=== PATIENT | female | born 1970 | race Caucasian/White ===

== ENCOUNTER 2016-11-05 17:54 | Inpatient (IN) | payer MEDICAID ==
[~2016-11-05] VITALS: Ht 157.5 cm; Wt 74.8 kg
[2016-11-05] MEDS ORDERED: MORPHINE SULFATE 4 MG/ML CPJ (NOT FOR IM USE) IV STA (19:32)
[2016-11-05] MEDS ORDERED: SODIUM CHLORIDE 0.9% 1,000 ML IV ONE (19:32)
[2016-11-05] MEDS ORDERED: ONDANSETRON HCL 4MG/2ML VIAL IV STA (19:32)
[2016-11-05] MEDS ORDERED: FAMOTIDINE 20MG/2ML VIAL IV STA (19:32)
[2016-11-05 19:57] LABS: HEMATOCRIT. 36.1 % (36.0-48.0); MEAN CORPUSCULAR HEMOGLOBIN 26.1 pg (28.0-32.0); MEAN CORPUSCULAR VOLUME 78.6 fL (81.0-99.0); MEAN PLATELET VOLUME 7.6 fl (7.4-10.4); PLATELET 389 x1000/uL (130-400); RED CELL DISTRIBUTION WIDTH 18.4 % (11.6-14.6)
[2016-11-05 20:00] LABS: INR 1.1; PROTHROMBIN TIME 11.3 sec (9.4-11.6)
[2016-11-05 20:02] LABS: CARBON DIOXIDE 25 mEq/L (21-32); CHLORIDE 107 mEq/L (98-107)
[2016-11-05 20:10] LABS: HCG SCREEN NEGATIVE
[2016-11-05 20:40] LABS: PLATELET ESTIMATE NORMAL
[2016-11-05] MEDS ORDERED: KETOROLAC 30MG/ML VIAL IV ONE (21:45)
[2016-11-05] MEDS ORDERED: MAGNESIUM/ALUMINUM HYDROXIDE/SIMETHICONE 30ML UDC PO STA (21:46)
[2016-11-05] MEDS ORDERED: VISCOUS LIDOCAINE 2% 15 ML UDC PO STA (21:46)
[2016-11-05 22:13] LABS: CLARITY URINE CLEAR (CLEAR); COLOR URINE YELLOW (YELLOW); SPECIFIC GRAVITY URINE 1.023 (1.005-1.030)
[2016-11-05 22:14] LABS: GLUCOSE URINE NEGATIVE (NEGATIVE); KETONES URINE 2+ (NEGATIVE); LEUKOCYTE ESTERASE URINE NEGATIVE (NEGATIVE); NITRITE URINE NEGATIVE (NEGATIVE); OCCULT BLOOD URINE NEGATIVE (NEGATIVE); PH URINE 6.5 (4.5-8.0); PROTEIN URINE TRACE (NEGATIVE); UROBILINOGEN URINE 0.2 E.U./dL (0.2-1.0)
[2016-11-06] MEDS ORDERED: CLONIDINE 0.1MG TABLET PO PRN (00:15)
[2016-11-06] MEDS: DEXT 5%/0.45% NACL 1000ML 1,000 ML IV SCH ×2 (01:07→13:35)
[2016-11-06] MEDS: ACETAMINOPHEN 325MG TABLET PO PRN ×2 (01:31→19:01)
[2016-11-06] MEDS ORDERED: CLAR500T PO (17:25)
[2016-11-06] MEDS ORDERED: OMEP20CA10 PO (17:27)
[2016-11-06 17:30] VITALS: BP 102/66
[2016-11-06 17:40] VITALS: BP 102/66
[2016-11-06] MEDS ORDERED: METR500T4 PO (18:25)
[2016-11-06] MEDS: ONDANSETRON HCL 4MG/2ML VIAL IV PRN (19:01)
[2016-11-06 20:00] VITALS: BP 104/69
[2016-11-07] VITALS: BP 100/54
[2016-11-07 04:00] VITALS: BP 101/63
[2016-11-07] MEDS: DEXT 5%/0.45% NACL 1000ML 1,000 ML IV SCH (06:20)
[2016-11-07 06:43] LABS: BASOPHILS % 0.6 % (0.0-2.0); HEMATOCRIT. 33.6 % (36.0-48.0); HEMOGLOBIN. 10.9 g/dL (12.0-16.0); LYMPHOCYTES % 43.8 % (20.0-50.0); MEAN CORPUSCULAR HEMOGLOBIN 25.7 pg (28.0-32.0); MEAN CORPUSCULAR VOLUME 79.2 fL (81.0-99.0); MEAN PLATELET VOLUME 8.3 fl (7.4-10.4); MONOCYTES % 8.4 % (2.0-8.0); NEUTROPHILS % 45.2 % (40.0-76.0); PLATELET 324 x1000/uL (130-400); RED BLOOD CELL COUNT 4.24 mill/uL (4.2-5.4); RED CELL DISTRIBUTION WIDTH 17.9 % (11.6-14.6)
[2016-11-07 08:00] VITALS: BP 100/56
[2016-11-07 08:00] LABS: CARBON DIOXIDE 26 mEq/L (21-32); CHLORIDE 108 mEq/L (98-107)
[2016-11-07] MEDS: ONDANSETRON HCL 4MG/2ML VIAL IV PRN ×3 (09:24→19:14)
[2016-11-07] MEDS: MORPHINE SULFATE 2 MG/ML CPJ (NOT FOR IM USE) IV PRN ×3 (09:27→19:18)
[2016-11-07] MEDS: ACETAMINOPHEN 325MG TABLET PO PRN (10:20)
[2016-11-07 12:00] VITALS: BP 106/62
[2016-11-07 16:00] VITALS: BP 99/60
[2016-11-07 20:00] VITALS: BP 96/65
[2016-11-08] VITALS (7 sets, daily range): BP systolic 96–129; BP diastolic 56–69
[2016-11-08] MEDS: DEXT 5%/0.45% NACL 1000ML 1,000 ML IV SCH ×2 (06:20→18:03)
[2016-11-08] MEDS: ACETAMINOPHEN 325MG TABLET PO PRN (09:58)
[2016-11-08] MEDS: ONDANSETRON HCL 4MG/2ML VIAL IV PRN ×2 (11:34→23:11)
[2016-11-08] MEDS: FAMOTIDINE 20MG TABLET PO SCH (22:24)
[2016-11-08] MEDS: MORPHINE SULFATE 2 MG/ML CPJ (NOT FOR IM USE) IV PRN (23:03)
[2016-11-09 04:00] VITALS: BP 107/61
[2016-11-09 08:00] VITALS: BP 113/68
[2016-11-09] MEDS: FAMOTIDINE 20MG TABLET PO SCH ×2 (08:30→21:14)
[2016-11-09] MEDS ORDERED: LOPERAMIDE 2 MG/10 ML UDC PO NR (10:00)
[2016-11-09] MEDS: MORPHINE SULFATE 2 MG/ML CPJ (NOT FOR IM USE) IV PRN ×2 (10:14→20:19)
[2016-11-09] MEDS: ONDANSETRON HCL 4MG/2ML VIAL IV PRN (10:20)
[2016-11-09 10:52] LABS: BASOPHILS % 0.6 % (0.0-2.0); EOSINOPHILS % 1.4 % (0.0-5.0); HEMOGLOBIN. 11.7 g/dL (12.0-16.0); LYMPHOCYTES % 29.5 % (20.0-50.0); MEAN CORPUSCULAR HEMOGLOBIN 25.5 pg (28.0-32.0); MEAN CORPUSCULAR VOLUME 78.5 fL (81.0-99.0); MONOCYTES % 7.4 % (2.0-8.0); NEUTROPHILS % 61.1 % (40.0-76.0); PLATELET 354 x1000/uL (130-400); RED BLOOD CELL COUNT 4.58 mill/uL (4.2-5.4)
[2016-11-09] MEDS: DEXT 5%/0.45% NACL 1000ML 1,000 ML IV SCH (11:01)
[2016-11-09 11:02] LABS: CARBON DIOXIDE 27 mEq/L (21-32); CHLORIDE 109 mEq/L (98-107)
[2016-11-09 12:00] VITALS: BP 126/72
[2016-11-09 16:00] VITALS: BP 111/67
[2016-11-09 20:00] VITALS: BP 116/69
[2016-11-10] VITALS: BP 99/57
[2016-11-10 04:00] VITALS: BP 108/71
[2016-11-10 08:00] VITALS: BP 113/72
[2016-11-10] MEDS: FAMOTIDINE 20MG TABLET PO SCH ×2 (08:33→20:44)
[2016-11-10] MEDS: ONDANSETRON HCL 4MG/2ML VIAL IV PRN (09:32)
[2016-11-10] MEDS: MORPHINE SULFATE 2 MG/ML CPJ (NOT FOR IM USE) IV PRN (09:34)
[2016-11-10 12:00] VITALS: BP 116/70
[2016-11-10] MEDS ORDERED: LOPERAMIDE HCL 2MG CAPSULE PO PRN (13:15)
[2016-11-10 16:00] VITALS: BP 106/68
[2016-11-10] MEDS: DEXT 5%/0.45% NACL 1000ML 1,000 ML IV SCH ×2 (16:16)
[2016-11-10 20:00] VITALS: BP 101/54
[2016-11-11] VITALS: BP 101/60
[2016-11-11 04:00] VITALS: BP 97/58
[2016-11-11] MEDS: DEXT 5%/0.45% NACL 1000ML 1,000 ML IV SCH (05:52)
[2016-11-11 08:00] VITALS: BP 105/63
[2016-11-11] MEDS: FAMOTIDINE 20MG TABLET PO SCH (08:38)
[2016-11-11 12:06] VITALS: BP 118/60
[2016-11-11 13:35] VITALS: BP 118/60
== END 2016-11-11 15:35 | disposition home or self-care (01) | DRG 243 ==
LOC: ER 17:57 → 6EST 11-06 12:07 → EDBEDREQ 11-06 12:15 → ENRESERV 11-06 15:18
PROVIDERS: ADMIT Hospitalist; ATTEND Hospitalist
DX: K21.9 Gastro-esophageal reflux disease without esophagitis (principal); K76.0 Fatty (change of) liver, not elsewhere classified; K83.8 Other specified diseases of biliary tract; K80.20 Calculus of gallbladder without cholecystitis without obstruction; D64.9 Anemia, unspecified; K52.9 Noninfective gastroenteritis and colitis, unspecified
CPT/HCPCS: 36415; 74181; 76705; 80048; 80053; 81001; 81025; 83690; 84703; 85025; 85610; 87015; 87045; 87427; 87449; 87493; 89055; 96361; 96374; 96375; 99285; J1885; J2270; J2405; J3490; J7030